=== PATIENT | female | born 1990 | race Caucasian/White ===

== ENCOUNTER 2019-02-03 19:41 | Emergency (ER) | payer MEDICAID ==
[~2019-02-03] VITALS: Ht 162.6 cm; Wt 59.1 kg
[2019-02-03 20:02] VITALS: BP 134/82
== END 2019-02-03 21:05 | disposition home or self-care (01) ==
LOC: EMS 19:45
DX: H61.21 Impacted cerumen, right ear (principal); H60.91 Unspecified otitis externa, right ear
CPT/HCPCS: 69209